=== PATIENT | female | born 1955 | race African-American/Black ===

== ENCOUNTER 2020-07-15 10:26 | Inpatient (IN) | payer OTHER ==
[2020-07-15 10:46] VITALS: BMI 29.0
[2020-07-15 12:56] LABS: BASO % 0.5 % (0-2.0); HEMOGLOBIN 12.5 GM/dL (10.7-15.3); LYMPH % 22.1 % (8-40); MCH 26.7 pg (25.7-33.7); MCHC 31.9 g/dl (32.0-36.0); MEAN CELL VOLUME 83.5 fl (80-96); MEAN PLT VOLUME 10.1 fl (7.5-11.1); MONO % 11.6 % (3.8-10.2); NEUT % 65.8 % (42.8-82.8); PLATELET COUNT 173 K/MM3 (134-434); RBC 4.67 M/mm3 (3.60-5.2); RDW 17.9 % (11.6-15.6); WHITE BLOOD COUNT 4.5 K/mm3 (4.0-10.0)
[2020-07-15 13:05] LABS: INR 0.98 (0.83-1.09); PROTHROMBIN TIME (PATIENT) 12.1 SEC (9.7-13.0)
[2020-07-15 13:08] LABS: ACTIVATED PTT 29.1 SECONDS (25.2-36.5)
[2020-07-15 13:20] LABS: CHLORIDE 100 mmol/L (98-107); POTASSIUM 4.2 mmol/L (3.5-5.1); SODIUM 136 mmol/L (136-145)
[2020-07-15 13:22] LABS: ALBUMIN 3.5 g/dl (3.4-5.0)
[2020-07-15 13:23] LABS: ANION GAP 7 MMOL/L (8-16); BLOOD UREA NITROGEN 31.1 mg/dL (7-18); CO2 29 mmol/L (21-32); GLUCOSE,RANDOM 182 mg/dL (74-106)
[2020-07-15 13:25] LABS: BILIRUBIN,DIRECT 0.3 mg/dL (0.0-0.2); SGPT/ALT 34 U/L (13-61)
[2020-07-15 13:26] LABS: CREATININE 1.7 mg/dL (0.55-1.3); SGOT/AST 57 U/L (15-37)
[2020-07-15 13:27] LABS: BILIRUBIN,TOTAL 0.8 mg/dL (0.2-1); TOT PROT 7.2 g/dl (6.4-8.2)
[2020-07-15 13:28] LABS: ALK PHOS 52 U/L (45-117)
[2020-07-15 13:29] LABS: LDH 418 U/L (84-246)
[2020-07-15] MEDS ORDERED: DEXAMETHASONE SOD PHOSPHATE 10 MG/1 ML VIAL IVPUSH ONE (13:41)
[2020-07-15] MEDS ORDERED: SODIUM CHLORIDE 0.9% 500 ML INFUS.BAG IV ONE (13:43)
[2020-07-15] MEDS ORDERED: DEXAMETHASONE SOD PHOSPHATE 10 MG/1 ML VIAL ONE (14:09)
[2020-07-15] MEDS ORDERED: SODIUM CHLORIDE 500 ML IV STA (17:09)
[2020-07-15 18:10] LABS: EPI CELLS >36 /uL (0-25.1); HYALINE CASTS 2 /uL (0-3.1); URINE APPEARANCE CLOUDY; URINE BACTERIA 840 /uL (0-1359); URINE BILIRUBIN NEGATIVE (NEGATIVE); URINE COLOR YELLOW; URINE GLUCOSE (UA) 2+ (NEGATIVE); URINE KETONE 1+ (NEGATIVE); URINE LEUK ESTERASE 1+ (NEGATIVE); URINE NITRITE NEGATIVE (NEGATIVE); URINE PROTEIN 2+ (NEGATIVE); URINE UROBILINOGEN 0.2 mg/dL (0.2-1.0); URINE WBC 225 /uL (0-25.8)
[2020-07-15 18:38] LABS: URINE RBC 37 /uL (0-23.9)
[2020-07-15] MEDS ORDERED: HEPARIN NA (PORCINE) 5,000 UNITS/ML 1ML VIAL ONE (21:21)
[2020-07-15] MEDS: HEPARIN NA (PORCINE) 5,000 UNITS/ML 1ML VIAL SQ SCH (22:06)
[2020-07-15] MEDS ORDERED: INSULIN SLIDING SCALE (NOVOLOG) 1 VIAL SQ ONE (22:09)
[2020-07-15] MEDS: INSULIN SLIDING SCALE (NOVOLOG) 1 VIAL SQ SCH (22:13)
[2020-07-16] MEDS ORDERED: HEPARIN NA (PORCINE) 5,000 UNITS/ML 1ML VIAL ONE (06:15)
[2020-07-16] MEDS: HEPARIN NA (PORCINE) 5,000 UNITS/ML 1ML VIAL SQ SCH ×3 (06:19→22:56)
[2020-07-16 07:51] LABS: HEMATOCRIT 36.3 % (32.4-45.2); HEMOGLOBIN 11.7 GM/dL (10.7-15.3); MCHC 32.3 g/dl (32.0-36.0); MEAN CELL VOLUME 83.5 fl (80-96); MEAN PLT VOLUME 9.6 fl (7.5-11.1); PLATELET COUNT 168 K/MM3 (134-434); RBC 4.35 M/mm3 (3.60-5.2); WHITE BLOOD COUNT 3.7 K/mm3 (4.0-10.0)
[2020-07-16 07:57] LABS: CHLORIDE 108 mmol/L (98-107); POTASSIUM 4.3 mmol/L (3.5-5.1); SODIUM 142 mmol/L (136-145)
[2020-07-16 08:11] LABS: ANION GAP 9 MMOL/L (8-16); CALCIUM 8.7 mg/dL (8.5-10.1); CO2 25 mmol/L (21-32)
[2020-07-16 08:12] LABS: BLOOD UREA NITROGEN 34.3 mg/dL (7-18); GLUCOSE,RANDOM 188 mg/dL (74-106)
[2020-07-16 08:17] LABS: CREATININE 1.3 mg/dL (0.55-1.3)
[2020-07-16] MEDS: INSULIN SLIDING SCALE (NOVOLOG) 1 VIAL SQ SCH ×4 (08:54→22:58)
[2020-07-16] MEDS ORDERED: DEXAMETHASONE SOD PHOSPHATE 4 MG/1 ML VIAL IVPUSH ONE (10:00)
[2020-07-16] MEDS ORDERED: DEXAMETHASONE 4 MG TABLET (FP) ONE (10:34)
[2020-07-16] MEDS ORDERED: ATENOLOL 25 MG TABLET (FP) ONE (10:34)
[2020-07-16] MEDS: SODIUM CHLORIDE 1,000 ML IV SCH ×2 (10:55→18:40)
[2020-07-16] MEDS: ATENOLOL 25 MG TABLET (FP) PO SCH (10:56)
[2020-07-16] MEDS: EZETIMIBE 10 MG TABLET (FP) PO SCH (10:56)
[2020-07-16] MEDS ORDERED: REMDESIVIR 200 MG in SODIUM CHLORIDE 210 ML IVPB ONE (18:00)
[2020-07-17] MEDS ORDERED: ACETAMINOPHEN 325 MG TABLET (FP) PO ONE (02:47)
[2020-07-17] MEDS: HEPARIN NA (PORCINE) 5,000 UNITS/ML 1ML VIAL SQ SCH ×3 (06:53→22:51)
[2020-07-17] MEDS: INSULIN SLIDING SCALE (NOVOLOG) 1 VIAL SQ SCH ×4 (06:54→22:51)
[2020-07-17] MEDS ORDERED: PT OWN MED DRAWER 7, Y5N ONE (10:10)
[2020-07-17] MEDS: DEXAMETHASONE SOD PHOSPHATE 4 MG/1 ML VIAL IVPUSH SCH (10:13)
[2020-07-17] MEDS: SODIUM CHLORIDE 1,000 ML IV SCH (10:13)
[2020-07-17] MEDS: ASCORBIC ACID 500 MG TABLET (FP) PO SCH ×2 (10:14→22:51)
[2020-07-17] MEDS: ZINC SULFATE 220 MG CAPSULE (FP) PO SCH ×2 (10:14→22:51)
[2020-07-17] MEDS: ATENOLOL 25 MG TABLET (FP) PO SCH (10:14)
[2020-07-17] MEDS: CHOLECALCIFEROL (VIT D3) 1,000 UNIT (25 MCG) TABLET PO SCH (10:14)
[2020-07-17] MEDS: EZETIMIBE 10 MG TABLET (FP) PO SCH (10:14)
[2020-07-17] MEDS ORDERED: INSULIN (NOVOLOG) ASPART 100 UNITS/ML 10ML VIAL ONE ×2 (11:48→16:58)
[2020-07-17] MEDS ORDERED: ACETAMINOPHEN 1000 MG/100 ML VIAL (NON FORMULARY) IVPB PRN (12:38)
[2020-07-17] MEDS: REMDESIVIR 100 MG in SODIUM CHLORIDE 230 ML IVPB SCH (17:55)
[2020-07-18] MEDS: SODIUM CHLORIDE 1,000 ML IV SCH ×3 (01:25→15:01)
[2020-07-18] MEDS: INSULIN SLIDING SCALE (NOVOLOG) 1 VIAL SQ SCH ×5 (06:11→22:59)
[2020-07-18] MEDS: HEPARIN NA (PORCINE) 5,000 UNITS/ML 1ML VIAL SQ SCH ×3 (06:11→22:59)
[2020-07-18 08:56] LABS: BASO % 0.3 % (0-2.0); HEMATOCRIT 34.4 % (32.4-45.2); HEMOGLOBIN 11.1 GM/dL (10.7-15.3); LYMPH % 24.4 % (8-40); MCH 26.7 pg (25.7-33.7); MCHC 32.2 g/dl (32.0-36.0); MEAN CELL VOLUME 82.9 fl (80-96); MEAN PLT VOLUME 9.5 fl (7.5-11.1); NEUT % 58.3 % (42.8-82.8); PLATELET COUNT 173 K/MM3 (134-434); RBC 4.15 M/mm3 (3.60-5.2); RDW 17.8 % (11.6-15.6); WHITE BLOOD COUNT 3.7 K/mm3 (4.0-10.0)
[2020-07-18 09:18] LABS: POTASSIUM 4.4 mmol/L (3.5-5.1)
[2020-07-18] MEDS ORDERED: PT OWN MED DRAWER 7, Y5N ONE (09:18)
[2020-07-18 09:28] LABS: ALBUMIN 2.4 g/dl (3.4-5.0)
[2020-07-18] MEDS: ZINC SULFATE 220 MG CAPSULE (FP) PO SCH ×2 (09:28→22:59)
[2020-07-18] MEDS: EZETIMIBE 10 MG TABLET (FP) PO SCH (09:28)
[2020-07-18] MEDS: DEXAMETHASONE SOD PHOSPHATE 4 MG/1 ML VIAL IVPUSH SCH (09:28)
[2020-07-18] MEDS: ASCORBIC ACID 500 MG TABLET (FP) PO SCH ×2 (09:28→22:59)
[2020-07-18 09:29] LABS: BILIRUBIN,TOTAL 0.4 mg/dL (0.2-1); TOT PROT 5.5 g/dl (6.4-8.2)
[2020-07-18] MEDS: CHOLECALCIFEROL (VIT D3) 1,000 UNIT (25 MCG) TABLET PO SCH (09:29)
[2020-07-18] MEDS: ATENOLOL 25 MG TABLET (FP) PO SCH (09:29)
[2020-07-18 09:32] LABS: CALCIUM 8.3 mg/dL (8.5-10.1); CREATININE 0.9 mg/dL (0.55-1.3)
[2020-07-18 09:33] LABS: MAGNESIUM 2.1 mg/dL (1.8-2.4)
[2020-07-18] MEDS: REMDESIVIR 100 MG in SODIUM CHLORIDE 230 ML IVPB SCH (17:36)
[2020-07-19] MEDS: HEPARIN NA (PORCINE) 5,000 UNITS/ML 1ML VIAL SQ SCH (07:01)
[2020-07-19] MEDS: INSULIN SLIDING SCALE (NOVOLOG) 1 VIAL SQ SCH ×4 (07:02→21:25)
[2020-07-19 09:49] LABS: BASO % 0.7 % (0-2.0); HEMATOCRIT 35.6 % (32.4-45.2); HEMOGLOBIN 11.4 GM/dL (10.7-15.3); LYMPH % 20.8 % (8-40); MCHC 32.2 g/dl (32.0-36.0); MEAN CELL VOLUME 84.1 fl (80-96); MEAN PLT VOLUME 9.2 fl (7.5-11.1); MONO % 11.9 % (3.8-10.2); NEUT % 66.6 % (42.8-82.8); PLATELET COUNT 189 K/MM3 (134-434); RBC 4.23 M/mm3 (3.60-5.2); RDW 17.8 % (11.6-15.6); WHITE BLOOD COUNT 5.3 K/mm3 (4.0-10.0)
[2020-07-19 10:05] LABS: POTASSIUM 3.9 mmol/L (3.5-5.1)
[2020-07-19 10:13] LABS: CALCIUM 8.9 mg/dL (8.5-10.1)
[2020-07-19 10:16] LABS: ALBUMIN 2.7 g/dl (3.4-5.0); BLOOD UREA NITROGEN 20.7 mg/dL (7-18)
[2020-07-19] MEDS: DEXAMETHASONE SOD PHOSPHATE 4 MG/1 ML VIAL IVPUSH SCH (10:16)
[2020-07-19] MEDS: SODIUM CHLORIDE 1,000 ML IV SCH (10:17)
[2020-07-19] MEDS: ZINC SULFATE 220 MG CAPSULE (FP) PO SCH ×2 (10:17→21:24)
[2020-07-19] MEDS: ATENOLOL 25 MG TABLET (FP) PO SCH (10:17)
[2020-07-19] MEDS: ASCORBIC ACID 500 MG TABLET (FP) PO SCH ×2 (10:17→21:24)
[2020-07-19] MEDS: CHOLECALCIFEROL (VIT D3) 1,000 UNIT (25 MCG) TABLET PO SCH (10:17)
[2020-07-19] MEDS: EZETIMIBE 10 MG TABLET (FP) PO SCH (10:17)
[2020-07-19 10:19] LABS: CREATININE 1.1 mg/dL (0.55-1.3)
[2020-07-19 10:26] LABS: MAGNESIUM 2.1 mg/dL (1.8-2.4)
[2020-07-19 11:03] LABS: BILIRUBIN,TOTAL 0.6 mg/dL (0.2-1)
[2020-07-19] MEDS: INSULIN (LEVEMIR) 100 UNITS/ML UNITS SQ SCH ×2 (11:57→21:24)
[2020-07-19] MEDS: ENOXAPARIN NA (PORCINE) 40 MG/0.4 ML DISP.SYRIN SQ SCH (15:06)
[2020-07-19] MEDS: REMDESIVIR 100 MG in SODIUM CHLORIDE 230 ML IVPB SCH (17:12)
[2020-07-20] MEDS: SODIUM CHLORIDE 1,000 ML IV SCH ×2 (01:00→11:55)
[2020-07-20] MEDS: INSULIN SLIDING SCALE (NOVOLOG) 1 VIAL SQ SCH ×4 (06:26→21:42)
[2020-07-20] MEDS: INSULIN (LEVEMIR) 100 UNITS/ML UNITS SQ SCH ×2 (06:27→21:41)
[2020-07-20 08:13] LABS: BASO % 0.3 % (0-2.0); EOS % 0.1 % (0-4.5); HEMATOCRIT 36.4 % (32.4-45.2); HEMOGLOBIN 11.6 GM/dL (10.7-15.3); LYMPH % 22.9 % (8-40); MCH 26.8 pg (25.7-33.7); MEAN CELL VOLUME 83.6 fl (80-96); MEAN PLT VOLUME 9.2 fl (7.5-11.1); MONO % 12.6 % (3.8-10.2); NEUT % 64.1 % (42.8-82.8); PLATELET COUNT 243 K/MM3 (134-434); RBC 4.35 M/mm3 (3.60-5.2)
[2020-07-20 08:37] LABS: POTASSIUM 3.7 mmol/L (3.5-5.1)
[2020-07-20 08:46] LABS: ALBUMIN 2.5 g/dl (3.4-5.0)
[2020-07-20 08:47] LABS: BLOOD UREA NITROGEN 16.6 mg/dL (7-18)
[2020-07-20 08:49] LABS: CREATININE 0.9 mg/dL (0.55-1.3); TOT PROT 5.8 g/dl (6.4-8.2)
[2020-07-20 08:50] LABS: CALCIUM 8.4 mg/dL (8.5-10.1)
[2020-07-20] MEDS: DEXAMETHASONE SOD PHOSPHATE 4 MG/1 ML VIAL IVPUSH SCH (10:12)
[2020-07-20] MEDS: ZINC SULFATE 220 MG CAPSULE (FP) PO SCH ×2 (10:14→21:23)
[2020-07-20] MEDS: ENOXAPARIN NA (PORCINE) 40 MG/0.4 ML DISP.SYRIN SQ SCH (10:14)
[2020-07-20] MEDS: ASCORBIC ACID 500 MG TABLET (FP) PO SCH ×2 (10:14→21:23)
[2020-07-20] MEDS: ATENOLOL 25 MG TABLET (FP) PO SCH (10:14)
[2020-07-20] MEDS: EZETIMIBE 10 MG TABLET (FP) PO SCH (10:14)
[2020-07-20] MEDS: CHOLECALCIFEROL (VIT D3) 1,000 UNIT (25 MCG) TABLET PO SCH (10:14)
[2020-07-20] MEDS ORDERED: INSULIN (NOVOLOG) ASPART 100 UNITS/ML 10ML VIAL ONE ×2 (11:08→18:58)
[2020-07-20 14:33] LABS: MAGNESIUM 2.2 mg/dL (1.8-2.4)
[2020-07-20] MEDS: REMDESIVIR 100 MG in SODIUM CHLORIDE 230 ML IVPB SCH (17:53)
[2020-07-21] MEDS: INSULIN (LEVEMIR) 100 UNITS/ML UNITS SQ SCH ×2 (06:35→21:04)
[2020-07-21] MEDS: INSULIN SLIDING SCALE (NOVOLOG) 1 VIAL SQ SCH ×4 (06:35→21:02)
[2020-07-21 08:02] LABS: POTASSIUM 3.9 mmol/L (3.5-5.1)
[2020-07-21 08:04] LABS: ALBUMIN 2.4 g/dl (3.4-5.0); BLOOD UREA NITROGEN 18.4 mg/dL (7-18); CALCIUM 8.5 mg/dL (8.5-10.1); MAGNESIUM 2.2 mg/dL (1.8-2.4)
[2020-07-21 08:07] LABS: CREATININE 0.9 mg/dL (0.55-1.3)
[2020-07-21 08:09] LABS: BILIRUBIN,TOTAL 0.6 mg/dL (0.2-1); TOT PROT 5.6 g/dl (6.4-8.2)
[2020-07-21 08:24] LABS: BASO % 0.3 % (0-2.0); EOS % 0.2 % (0-4.5); HEMATOCRIT 37.1 % (32.4-45.2); HEMOGLOBIN 11.9 GM/dL (10.7-15.3); LYMPH % 22.5 % (8-40); MCH 26.8 pg (25.7-33.7); MCHC 32.1 g/dl (32.0-36.0); MEAN CELL VOLUME 83.4 fl (80-96); MEAN PLT VOLUME 9.4 fl (7.5-11.1); MONO % 12.2 % (3.8-10.2); NEUT % 64.8 % (42.8-82.8); PLATELET COUNT 262 K/MM3 (134-434); RBC 4.45 M/mm3 (3.60-5.2); RDW 17.9 % (11.6-15.6); WHITE BLOOD COUNT 5.7 K/mm3 (4.0-10.0)
[2020-07-21] MEDS: ZINC SULFATE 220 MG CAPSULE (FP) PO SCH ×2 (10:29→21:02)
[2020-07-21] MEDS: DEXAMETHASONE SOD PHOSPHATE 4 MG/1 ML VIAL IVPUSH SCH (10:29)
[2020-07-21] MEDS: EZETIMIBE 10 MG TABLET (FP) PO SCH (10:29)
[2020-07-21] MEDS: ASCORBIC ACID 500 MG TABLET (FP) PO SCH ×2 (10:29→21:02)
[2020-07-21] MEDS: SODIUM CHLORIDE 1,000 ML IV SCH ×2 (10:29→21:02)
[2020-07-21] MEDS: ATENOLOL 25 MG TABLET (FP) PO SCH (10:29)
[2020-07-21] MEDS: CHOLECALCIFEROL (VIT D3) 1,000 UNIT (25 MCG) TABLET PO SCH (10:29)
[2020-07-21] MEDS: ENOXAPARIN NA (PORCINE) 40 MG/0.4 ML DISP.SYRIN SQ SCH (10:29)
[2020-07-22 05:20] VITALS: BP 136/67; PULSE 56; TEMP 98.2
[2020-07-22] MEDS: INSULIN SLIDING SCALE (NOVOLOG) 1 VIAL SQ SCH (06:43)
[2020-07-22] MEDS: INSULIN (LEVEMIR) 100 UNITS/ML UNITS SQ SCH (06:43)
[2020-07-22] MEDS ORDERED: INSULIN (NOVOLOG) ASPART 100 UNITS/ML 10ML VIAL ONE (07:10)
[2020-07-22 08:25] LABS: BASO % 0.2 % (0-2.0); EOS % 0.1 % (0-4.5); HEMOGLOBIN 11.2 GM/dL (10.7-15.3); LYMPH % 20.5 % (8-40); MONO % 14.8 % (3.8-10.2); NEUT % 64.4 % (42.8-82.8); PLATELET COUNT 298 K/MM3 (134-434); RBC 4.14 M/mm3 (3.60-5.2); RDW 17.6 % (11.6-15.6); WHITE BLOOD COUNT 5.7 K/mm3 (4.0-10.0)
[2020-07-22 08:28] LABS: POTASSIUM 3.9 mmol/L (3.5-5.1)
[2020-07-22 08:41] LABS: CALCIUM 8.3 mg/dL (8.5-10.1)
[2020-07-22 08:42] LABS: BLOOD UREA NITROGEN 16.9 mg/dL (7-18)
[2020-07-22 08:45] LABS: CREATININE 0.9 mg/dL (0.55-1.3)
[2020-07-22] MEDS: SODIUM CHLORIDE 1,000 ML IV SCH (09:46)
[2020-07-22] MEDS: ATENOLOL 25 MG TABLET (FP) PO SCH (09:47)
[2020-07-22] MEDS: ASCORBIC ACID 500 MG TABLET (FP) PO SCH (09:47)
[2020-07-22] MEDS: EZETIMIBE 10 MG TABLET (FP) PO SCH (09:47)
[2020-07-22] MEDS: CHOLECALCIFEROL (VIT D3) 1,000 UNIT (25 MCG) TABLET PO SCH (09:47)
[2020-07-22] MEDS: DEXAMETHASONE SOD PHOSPHATE 4 MG/1 ML VIAL IVPUSH SCH (09:47)
[2020-07-22] MEDS: ZINC SULFATE 220 MG CAPSULE (FP) PO SCH (09:47)
[2020-07-22] MEDS: ENOXAPARIN NA (PORCINE) 40 MG/0.4 ML DISP.SYRIN SQ SCH (09:51)
[2020-07-23] MEDS ORDERED: DEXAMETHASONE 4 MG TABLET (FP) PO SCH (10:00)
== END 2020-07-22 14:39 | disposition home or self-care (01) | DRG 177 ==
LOC: JER 10:26 → JERBED 13:45 → J6S 07-16 17:37
PROVIDERS: ADMIT Internal Medicine; ATTEND Nurse Practitioner Family
PROC: 8E0ZXY6 Isolation (ICD-10-PCS; 2020-07-15)
PROC: XW033E5 Introduction of Remdesivir Anti-infective into Peripheral Vein, Percutaneous Approach, New Technology Group 5 (ICD-10-PCS; principal; 2020-07-16)
DX: U07.1 COVID-19 (principal); J96.01 Acute respiratory failure with hypoxia; N17.9 Acute kidney failure, unspecified; E11.9 Type 2 diabetes mellitus without complications; I10 Essential (primary) hypertension; E78.5 Hyperlipidemia, unspecified; M79.10 Myalgia, unspecified site; Z78.9 Other specified health status
CPT/HCPCS: 36415; 71045-TC-FY; 76775-TC; 80048; 80053; 81003; 82248; 82436; 82550; 82553; 82565; 82728; 82962; 83605; 83615; 83735; 84133; 84300; 84484; 85025; 85027; 85379; 85610; 85730; 86140; 87040; 87086; 87804; 93005; 93010; 94010; 94761; 99285-25; C9399; C9803; J0131; J1100; J1644; U0003

== ENCOUNTER 2023-01-28 12:16 | Day surgery (SDC) | payer OTHER ==
[2023-01-28] MEDS ORDERED: IRON SUCROSE INJECTION 200 MG in SODIUM CHLORIDE 100 ML IVPB ONE (12:30)
[2023-01-28 12:59] VITALS: PULSE 75; RESP 18; TEMP 98.3
[2023-01-28 13:51] VITALS: BP 135/58
== END 2023-01-28 13:52 | disposition home or self-care (01) ==
LOC: FINFUSION 12:16 → FM/S 12:29 → FINFUSION 13:52
PROVIDERS: ATTEND Family Medicine
PROC: 3E033GC Introduction of Other Therapeutic Substance into Peripheral Vein, Percutaneous Approach (ICD-10-PCS; principal; 2023-01-28)
DX: D50.9 Iron deficiency anemia, unspecified (principal)
CPT/HCPCS: 96365; J1756

== ENCOUNTER 2023-02-04 12:08 | Day surgery (SDC) | payer OTHER ==
[2023-02-04] MEDS ORDERED: IRON SUCROSE INJECTION 200 MG in SODIUM CHLORIDE 100 ML IVPB ONE (12:30)
[2023-02-04 14:02] VITALS: BP 118/62; PULSE 78; RESP 18; TEMP 98.3
== END 2023-02-04 14:22 | disposition home or self-care (01) ==
LOC: FINFUSION 12:08 → FM/S 12:09 → FINFUSION 14:22
PROVIDERS: ATTEND Family Medicine
PROC: 3E033GC Introduction of Other Therapeutic Substance into Peripheral Vein, Percutaneous Approach (ICD-10-PCS; principal; 2023-02-04)
DX: D50.9 Iron deficiency anemia, unspecified (principal)
CPT/HCPCS: 96365; J1756